=== PATIENT | male | born 1980 | race Caucasian/White ===

== ENCOUNTER 2017-03-07 07:14 | Emergency (ER) | payer BC, OTHER ==
[2017-03-07 07:31] VITALS: BP 138/94
[2017-03-07] MEDS ORDERED: methylPREDNISolone 125 MG* 2 ML VIAL IM ONE (07:37)
--- NOTE | 2017-03-07 07:40 | UC ---
Back Pain HPI - HPI Summary HPI Summary: 36 YEAR OLD MALE PRESENTS WITH LEFT SIDED MID BACK PAIN AFTER LIFTING A BOX. - History of Current Complaint Chief Complaint: UCBackPain Stated Complaint: MID/LOWER BACK INJURY WC Time Seen by Provider: 03/07/17 07:31 Hx Obtained From: Patient Onset/Duration: Sudden Onset Severity Initially: Moderate Severity Currently: Moderate Pain Scale Used: 0-10 Numeric - 8 - Allergies/Home Medications Allergies/Adverse Reactions: Allergies Allergy/AdvReac Type Severity Reaction Status Date / Time Erythromycin AdvReac Vomiting Verified 03/07/17 07:31 Home Medications: Home Medications Cyclobenzaprine TAB* [Flexeril 10 MG TAB*] 10 mg PO TID PRN 03/07/17 [History Confirmed 03/07/17] PMH/Surg Hx/FS Hx/Imm Hx Previously Healthy: Yes - Surgical History Surgical History: Yes Surgery Procedure, Year, and Place: urethra as child,t/a at [age] yrs - Social History Alcohol Use: None Substance Use Type: None Smoking Status (MU): Never Smoked Tobacco Review of Systems Constitutional: Negative Skin: Negative Eyes: Negative ENT: Negative Respiratory: Negative Cardiovascular: Negative Gastrointestinal: Negative Genitourinary: Negative Motor: Negative Neurovascular: Negative Musculoskeletal: Other: - BACK PAIN Neurological: Negative Psychological: Negative All Other Systems Reviewed And Are Negative: Yes Physical Exam Triage Information Reviewed: Yes Vital Signs: Initial Vital Signs Temp 36.8 C 03/07/17 07:25 Pulse 102 03/07/17 07:25 Resp 22 03/07/17 07:25 BP 138/94 03/07/17 07:25 Vital Signs Reviewed: Yes Eye Exam: Normal ENT Exam: Normal Dental Exam: Normal Neck exam: Normal Neck: Positive: 1 Respiratory Exam: Normal Cardiovascular Exam: Normal Abdominal Exam: Normal Musculoskeletal: Positive: Other: - LEFT UPPER BACK PAIN Neurological Exam: Normal Psychological Exam: Normal Skin Exam: Normal Back Pain Course/Dx - Differential Dx/Diagnosis Provider Diagnoses: LEFT UPPER BAKC PAIN Discharge - Discharge Plan Condition: Stable Disposition: HOME Prescriptions: Methocarbamol TAB* [Robaxin 500 MG TAB*] 500 mg PO TID PRN #30 tab PRN Reason: Spasms - Back Methylprednisolone [Medrol Dosepak 4 MG*] 4 mg PO .SEE [employer]STRUCTION #21 tab Patient Education Materials: Low Back Strain (ED), Acute Low Back Pain (ED) Forms: *Work Release Referrals: Rafy Reeves MD [Medical Doctor] - [facility] – [place] Physical therapy,PT [Medical Doctor] - Additional Instructions: refer to [facility]
== END 2017-03-07 08:25 | disposition home or self-care (01) ==
LOC: UCCORT 07:14
DX: M54.6 Pain in thoracic spine (principal); Z88.1 Allergy status to other antibiotic agents
CPT/HCPCS: 96372; 99202; G0463; J2930